=== PATIENT | female | born 2005 | race Caucasian/White ===

== ENCOUNTER 2024-11-29 01:49 | Emergency (ER) | payer OTHER, SELFPAY ==
--- OUTSIDE RECORDS SUMMARY | 2024-11-29 01:54 | XMS_ITS | Data Portability ---
Author Organization GENARO - Silvano [facility], [id number] Address [address] [facility] [place] [address] Assessment No assessment recorded. Plan of Treatment Reminders Order Date Submit Date Provider Last Modified By Organization Details Last Modified Time Details Appointments None recorded. Lab urinalysi s, dipstick 2022 023 ha[address]ilre[id number] [facility] ur[facility]riv [facility], [facility], [address] [place] [address], [address], 3 17:41:06 culture, urine 2022 023 [facility], [address] [place] [address], [place], [address], 3 06:15:58 rapid strep group A, throat 2022 023 [address] [facility] urgmurthadriv e, [facility], Suite [facility], [place], [address], 3 17:06:46 SARS CoV 2 (COVID-19 ) Ag, QL, IA, upper respirato ry specimen 2022 023 jtePercentilreyna [address]_Yadio urgmurthadriv e, [facility], Suite [facility], [place], [address], 3 17:06:44 Referral None recorded. Procedures None recorded. Surgeries None recorded. Imaging None recorded. Medication Orders prednison e 20 mg tablet 2023 024 [facility], [address] [place], [address], 4 12:26:20 Augmentin 875 mg-125 mg tablet 2022 024 [facility], [address] [place], [address], 4 12:19:32 Mucinex D 60 mg-600 mg tablet,ex tended release 2022 024 [facility], [address] [place] [address], [address], 4 12:19:36 fluticaso ne propionat e 50 mcg/actua tion nasal spray,karen pension 2022 024 [facility], [facility] [place], [address], 4 12:19:33 Macrobid 100 mg capsule 2022 023 [facility], [address] [place] [address], [address], 3 08:07:05 amoxicill in 500 mg capsule 2022 023 [facility], [address] [place] [address], [address], 3 00:15:43 Patient TargetsNo targets recorded. Patient Instructions Encounter Date Encounter Id Patient Instructions Last Modified By Organization Details Last Modified Time 01/26/2023 [id number] sore throat: lilliana ayala instructions lisa Not available 01/26/2023 17:06:44 Please consult our office promptly if you develop any of the following symptoms: 1. A fever of at least 101 F or 38.4 C 2. Throat pain that is severe or does not start to improve within 5 to 7 days Call for an ambulance or go to the emergency room if you: 1. Have trouble breathing 2. Cannot control your saliva (drooling) due to difficulty swallowing 3. Have swelling of the neck or tongue 4. Cannot move your neck or have trouble opening your mouth lisa Not available 01/26/2023 16:56:39 02/26/2023 [id number] Urinary Tract Infection (UTI) in Women: Care Instructions haileyagareyna Not available 02/26/2023 17:41:04 follow up with pcp in 5 to 7 days and seek further medical care if you get worse in any way. increase fluids/rest. take all meds as prescribed. if worsening symptoms please follow up. if fever/ high back pain/ blood in urine seek medical care. wipe front to back inc fluids completely void fu if no imp we will call with your results Discussed current treatment plans with patient. Risk and benefits reviewed with patient. Signs and symptoms prompting immediate evaluation discussed. Patient verbalizes understanding and agrees with plan of care. Questions answered and patient voiced understanding Follow up should be as directed, typically in 3-5 days with your primary care provider or [facility] Follow up sooner if there are any problems. Failure to follow up may result in adverse health outcomes. Return to the clinic as needed. You should go to the emergency department immediately for any new/worsening/con cerning symptoms. lisa Not available 02/26/2023 17:41:03 05/02/2023 [id number] Acute Sinusitis: Care Instructions haileyagareyna Not available 05/02/2023 08:19:48 - Use the medications prescribed. - Decongestants if tolerated. - Recommend recheck if fever develops or no improvement in 5-7 days. - Use saline nasal spray or neti-pot flushes once to twice a day to loosen mucus in sinuses. - if no resolution or improvement within 2 weeks recheck at [facility] or PCP -.Use a cool mist humidifier in the room that you sleep to add moisture to the air, which should soothe the airways and help loosen any mucus that may be present. -Call 911 or proceed to nearest Emergency Department if you develop shortness of breath, chest pain, severe headache or other symptoms that concern you. jteagarden Not available 05/02/2023 08:19:46 02/27/2024 [id number] dermatitis: care instructions Not available 02/27/2024 12:26:18 FOLLOW-UP WITH YOUR PRIMARY CARE PROVIDER WITHIN THE WEEK. GO TO THE EMERGENCY DEPARTMENT IF SYMPTOMS WORSEN. TAKE TYLENOL OR IBUPROFEN IF ABLE NEEDED. FLUIDS AND REST. TRY AN [id number] ANTIHISTAMINE DAILY SUCH CLARITIN OR FLONASE. Not available 02/27/2024 12:26:17 Reason for Referral None Reported. Results Created Date Observation Date Name Description Value Unit Range Abnormal Flag Note LastModifiedBy Organization Detail LastModifiedTime 01/27/2001/26/2023 SARS CoV 2 (COVI D-19) Ag, QL, IA, upper respi rator y speci men Unknown Analyte negati ve Not Available [address] urgmurthadriv e [address] [place] [address] [place] [address], [address], 01/26/2023 17:02:58 01/27/20 23 01/26/2023 SARS CoV 2 (COVI D-19) Ag, QL, IA, upper respi rator y speci men Unknown Analyte yes Not Available [address]_ [facility] urgmurthadriv e [address] [place] [address] [place] [address], [address], 01/26/2023 17:02:58 01/27/2001/26/2023 rapid strep group A, throa t Unknown Analyte positi ve Not Available [address] [facility] [place] [address] [facility] [address] [place] [address], [address], 01/26/2023 16:42:32 01/27/2001/26/2023 rapid strep group A, throa t Unknown Analyte yes Not Available [address]_ [facility] urgmurthadriv e [address] [place] [address], [address], 01/26/2023 16:42:32 02/27/2002/28/2023 URINE CULTU RE, ROUTI NE urine culture, routine FINAL REPORT Not Available [facility] ([facility]) [address] [facility], [place], [address], 02/28/2023 06:15:58 02/27/2002/28/2023 URINE CULTU RE, ROUTI NE result 1 COMMEN T Mixed uroge nital talon 25,00 0-50, 000 colon y formi ng units per mL Not Available [facility] ([facility]) [address] [facility], [place], [address], 02/28/2023 06:15:58 02/27/2002/26/2023 urina lysis , dipst ick Unknown Analyte Normal = light yellow Not Available [address] [address] [facility]gmurth[facility] e [facility] [address] [facility], [place], [address], 02/26/2023 17:24:28 02/27/2002/26/2023 urina lysis , dipst ick Unknown Analyte Normal = clear Not Available [address] [place] [address] sb urgmurthadriv e [facility] [address] [facility], [place], [address], 02/26/2023 17:24:28 02/27/2002/26/2023 urina lysis , dipst ick Unknown Analyte Normal = Negati ve Not Available [address] [facility] [employer] [address] [facility], [place], [address], 02/26/2023 17:24:28 02/27/2002/26/2023 urina lysis , dipst ick Unknown Analyte Normal = negati ve Not Available [facility]murthad[facility] [employer] [facility], [place], [address], 02/26/2023 17:24:28 02/27/2002/26/2023 urina lysis , dipst ick Unknown Analyte Normal = Negati ve Not Available [address] [address] [facility] [address], [place], [address], 02/26/2023 17:24:28 02/27/20 23 02/26/2023 urina lysis , dipst ick Unknown Analyte Normal = 1.010, 1.015, 1.020 Not Available [address] [address] [facility], [place], [address], 02/26/2023 17:24:28 02/27/2002/26/2023 urina lysis , dipst ick Unknown Analyte Normal = Negati ve Not Available [address] [facility]g[place] e [facility] [address] [facility], [place], [address], 02/26/2023 17:24:28 02/27/2002/26/2023 urina lysis , dipst ick Unknown Analyte Normal = 6.5, 7.0, 7.5, 8.0 Not Available [address] [facility] e [facility] [address] [facility], [place], [address], 02/26/2023 17:24:28 02/27/20 23 02/26/2023 urina lysis , dipst ick Unknown Analyte Normal = Negati ve Not Available [address] [facility] [place] [address] [facility] [address] [facility], [place], [address], 02/26/2023 17:24:28 02/27/2002/26/2023 urina lysis , dipst ick Unknown Analyte Normal = 0.2, 1.0 Not Available [address] [facility] e [facility] [address] [facility], [place], [address], 02/26/2023 17:24:28 02/27/20 23 02/26/2023 urina lysis , dipst ick Unknown Analyte Normal = Negati ve Not Available [address] [facility] [address] [facility], [place], [address], 02/26/2023 17:24:28 02/27/20 23 02/26/2023 urina lysis , dipst ick Unknown Analyte Normal = Negati ve Not Available [address] [facility] [address] [facility] [address], [place], [address], 02/26/2023 17:24:28 02/27/2002/26/2023 urina lysis , dipst ick Unknown Analyte Hilda Not Available [address]_ [facility] urgmurthadriv e [facility] [address], [place], [address], 02/26/2023 17:24:28 02/27/20 23 02/26/2023 urina lysis , dipst ick Unknown Analyte Slight ly Cloudy Not Available [address] [facility] [address] [facility] [address], [place], [address], 02/26/2023 17:24:28 02/27/20 23 02/26/2023 urina lysis , dipst ick Unknown Analyte Negati ve Not Available [address] [facility] [address] [facility] [address], [place], [address], 02/26/2023 17:24:28 02/27/2002/26/2023 urina lysis , dipst ick Unknown Analyte Negati ve Not Available [address] [facility] [facility] [address], [place], [address], 02/26/2023 17:24:28 02/27/2002/26/2023 urina lysis , dipst ick Unknown Analyte Negati ve Not Available [address] [facility] e [facility] [address] [facility], [place], [address], 02/26/2023 17:24:28 02/27/20 23 02/26/2023 urina lysis , dipst ick Unknown Analyte 1.030 Not Available [address]_ [facility] urgmurthadriv e [address] [place], [place] [address], [place], [address], 02/26/2023 17:24:28 02/27/2002/26/2023 urina lysis , dipst ick Unknown Analyte Modera te Not Available [address] urgmurth[facility]riv e [address] [place], [place] [address] [address] [facility], [place], [address], 02/26/2023 17:24:28 02/27/2002/26/2023 urina lysis , dipst ick Unknown Analyte 5.5 Not Available [address]_ [facility] urgmurthadriv e [facility] [address] [facility], [place], [address], 02/26/2023 17:24:28 02/27/20 23 02/26/2023 urina lysis , dipst ick Unknown Analyte 30 mg/dL Not Available [address] [facility] [address] [place], [place] [address] [address] [facility], [place], [address], 02/26/2023 17:24:28 02/27/2002/26/2023 urina lysis , dipst ick Unknown Analyte 0.2 E.U./d L Not Available [address] [facility] [address] [facility] [address] [facility], [place], [address], 02/26/2023 17:24:28 02/27/20 23 02/26/2023 urina lysis , dipst ick Unknown Analyte Negati ve Not Available [address] [facility] [facility] [address], [place], [address], 02/26/2023 17:24:28 02/27/2002/26/2023 urina lysis , dipst ick Unknown Analyte Small Not Available [address]_ [facility] urgmurthadriv e [address] [facility] [address], [place], [address], 02/26/2023 17:24:28 Result Notes None recorded. Problems No Known Problems Procedures Surgical History Date Name Laterality Status Provider Name and Address Organization Details Recorded Time cholecystectomy completed GURJIT Felder A - [facility] 01/26/2023 16:46:38 Imaging Results None recorded. Procedure Notes None recorded. Medical Equipment None Reported. Allergies No known drug allergies Medications Name Sig Start Date Stop Date Status Note LastModified by Organization Details LastModified Time amoxicillin 500 mg capsule Take 1 capsule twice a day by oral route. 02/26 completed Not Available Not Available Not Available Augmentin 875 mg-125 mg tablet Take 1 tablet every 12 hours by oral route for 10 days. 02/26 completed Not Available Not Available Not Available prednisone 20 mg tablet TAKE 3 TABLETS DAILY X4 DAYS THEN 2 TABLETS DAILY X3 DAYS, THEN 1 TABLET DAILY X3 DAYS active Not Available Not Available No t Available Macrobid 100 mg capsule Take 1 capsule every 12 hours by oral route for 5 days. 05/02 completed Not Available Not Available Not Available fluticasone propionate 50 mcg/actuati on nasal spray,suspe nsion Spray2 spray(s) EVERY DAY by intranasa l route both nostrils 02/26 completed Not Available Not Available Not Available 1.5 (28) 1.5 mg-30 mcg (21)/75 mg (7) tablet active Not Available Not Available Not Available Mucinex D 60 mg-600 mg tablet,exte nded release Take 1 tablet twice a day by oral route as needed. 02/26 completed Not Available Not Available Not Available Vitals Date Recorded Body height Body mass index (BMI) [Percentile] Per age and sex Body mass index (BMI) Body weight Respiratory rate Body temperature Heart rate Oxygen saturation Oxygen saturation in Arterial blood by Pulse oximetry Systolic And Diastolic Provider Name and Address Organization Details Last Updated DateTime 3 167.64 cm 99 % 45.2 kg/m2 736964. 86 g 18 /min 98.6 [degF] 65 /min 99 % 99 % 132/84 mm[Hg] GURJIT IRVING [place] - [facility] 3 16:45:23 Date Recorded Body height Body mass index (BMI) Body mass index (BMI) [Percentile] Per age and sex Body weight Oxygen saturation Oxygen saturation in Arterial blood by Pulse oximetry Heart rate Respiratory rate Body temperature Systolic And Diastolic Provider Name and Address Organization Details Last Updated DateTime 3 170.18 cm 43.9 kg/m2 99 % 972968. 86 g 98 % 98 % 87 /min 18 /min 98.6 [degF] 119/73 mm[Hg] CHAY CABRERA [place] - [facility] 3 17:27:59 Date Recorded Body height Body mass index (BMI) Body mass index (BMI) [Percentile] Per age and sex Body weight Oxygen saturation Oxygen saturation in Arterial blood by Pulse oximetry Heart rate Respiratory rate Body temperature Systolic And Diastolic Provider Name and Address Organization Details Last Updated DateTime 4 172.72 cm 39.5 kg/m2 98.63 % 999221. 02 g 100 % 100 % 67 /min 18 /min 97.8 [degF] 128/85 mm[Hg] Ryanne Velázquez [place] - [facility] 4 12:20:12 Date Recorded Body height Body mass index (BMI) [Percentile] Per age and sex Body mass index (BMI) Body weight Oxygen saturation Oxygen saturation in Arterial blood by Pulse oximetry Heart rate Respiratory rate Body temperature Systolic And Diastolic Provider Name and Address Organization Details Last Updated DateTime 3 170.18 cm 99.65 % 43.9 kg/m2 229721. 86 g 98 % 98 % 68 /min 16 /min 98.9 [degF] 114/78 mm[Hg] Alexandria Draper GENARO Schaef[facility] 08:08:17 Social History Question Answer Notes LastModified by Organizat ion Details LastModified Time Tobacco Smoking Status Never Smoker GURJIT GENARO Chavez [facility] 01/26/2023 16:46:22 Have You Had A Flu Shot This Season? No Information not available 02/26/2023 If No, Would You Like A Flu Shot Today? No Information not available 02/26/2023 Have You Had Direct Contact, Or Contact During Intimacy, With Monkeypox Rash, Scabs, Or Body Fluids From A Person With Monkeypox? No Information not available 01/26/2023 What Is Your Relationship Status? Single Information not available 01/26/2023 Have You Recently Traveled Abroad? No Information not available 01/26/2023 Are You Currently In School? Yes Information not available 01/26/2023 Sex: Unknown Functional Status Question Answer Note LastModified by Organizat ion Details LastModified Time Do you use any illicit or recreational drugs? No Information not available 01/26/2023 Do you or have you ever used any other forms of tobacco or nicotine? No Information not available 01/26/2023 What is your level of alcohol consumption? None Information not available 01/26/2023 Are you currently employed? Yes Information not available 01/26/2023 Mental Status None recorded. Family History Relationship Description Onset Age of this Age Resolved Age Notes LastModified by Organization Details LastModified Time Father No current problems or disability Not available 01/26 16:46:03 Mother No current problems or disability Not available 01/26 16:46:03 Medical History No medical history recorded. Gynecological History Statement/Question Response Date of LMP 02/12/2024 Is there any chance of ? No LMP Approximate Obstetrics History GPAL:G 0 P 0 0 0 0 Past Encounters Encounter ID Performer Location Encounter Start Date Encounter Closed Date Diagnosis/Indication Diagnosis SNOMED-CT Code Diagnosis ICD10 Code Diagnosis Note [id number] GENARO MENENDEZ [address] [facility] [address] [place] [id number] 01/26/2023 16:20:51 01/26/2023 17:10:18 Acute pharyngitis 912835591 J02.9 Streptococ alex sore throat 15945697 J02.0 [id number] Michelle Mercado [place] [address] [place] [address] [place] [id number] 02/26/2023 17:18:55 02/26/2023 17:42:10 Acute urinary tract infection 521714226 N39.0 [id number] [place] [address] [place] [address] [place] [id number] 05/02/2023 08:01:32 05/02/2023 08:20:47 Acute sinusitis 76021741 J01.90 [id number] HILDA ETIENNE [address] [place] [address] [place] [id number] 02/27/2024 11:53:04 02/27/2024 12:26:48 Contact dermatitis 77303160 L25.9 Health Concerns Section Related Observation LastModified by Organization Detai ls LastModified Time None Recorded Concern Status LastModified by Organization Details LastModified Time None Recorded Advance Directives Directive None Recorded Payers Insurance Date Sequence Insurance Name Policy Number Policy Zuñiga Covered Member ID Zuñiga Member ID Guarantor Name 02/27/2024 1 [employer] (POS II) [id number] Yanely Reaves [id number] Dhara Reaves Notes Date Note Type Note Provider Name and Address Organization Details Recorded Time 01/26/2023 text/html pt with st and f ever for 2 days no other sx no others sick no cough no congestion no pain on inspiration. GENARO MENENDEZ [address] [place], [address], [place] - [facility] 01/26/2023 17:07:48 02/26/2023 text/html Urinary Complain t FemaleReported bypatient.UTI Symptoms:no blood in the urine; no vaginal discharge;urgency;ur inary frequency Severity:mild Duration:started ; 2 days Modifying Factors:nothing gives relief GENARO MENENDEZ [address] [place], [address], [facility] 02/26/2023 17:42:04 05/02/2023 text/html Sinus Complaints UCReported bypatient.Location:s inus pain;facial pain;pain in the cheek;sinus pressure; left side Associated Symptoms:nasal discharge from both nostrils;headache cheek;Post nasal drip;nasal passage blockage bilaterally;ear fullness Onset/Timing:initial ly started 1weeks ago Quality:worsening;pu rulent Severity:moderate Context:recent upper respiratory infection Risk Factors:no current smoking or tobacco use Alleviating factors:nothing gives relief Aggravating factors:worse with excess fatigue Prior Treatmentoral decongestant GENARO MENENDEZ [address] [place], [address], [facility] 05/02/2023 08:20:58 02/27/2024 text/html Skin Redness UCReported bypatient.Notes:x4-5 days of rash on both arms and legs that itches, only thing she can recall is getting gel swazi on her left thigh before this occured HILDA BRYNIM LOWELL [address] [place], [address], [place] [facility] 02/27/2024 13:27:46 OBGyn Episode No OBEpisode recorded.
[2024-11-29 01:57] VITALS: BP 117/80; PULSE 88; RESP 18; TEMP 36.9; O2SAT 98; BMI 33.4
--- NOTE | 2024-11-29 02:38 | HMH.EDGENADL ---
Discharge Plan Disposition Patient Disposition: Home, Self-Care Prescriptions Prescriptions: No Action norethindrone-e.estradiol-iron [ ()] 1.5 mg-30 mcg (21)/75 mg (7) tablet 1 tab PO DAILY Qty: 84 4RF Referrals Follow up/Referrals: Kalie Hall APRN [Primary Care Provider, Family Practice] - See instructions Activity Restrictions/Add. Instructions Additional Instructions/Restrictions: Please follow-up with your OBGYN. Please return to the emergency department if you develop any new or worsening symptoms or become concerned for your health. Clinical Impressions Clinical Impression: Bleeding in early Instructions Patient Instructions: DI for Acute Abdominal Pain Print Language Print Language: French Discharge ED Provider: Sotero Hoang Adult HPI General Chief complaint: Abdominal Pain Stated complaint: 13 wks antepartum, vaginal bleeding Time Seen by Provider: 11/29/24 02:00 Mode of Arrival: Ambulatory Source of Information: Patient Description of Symptoms (Recalled from ER Triage Doc. by RN): pt presents to the ED d/t complaints ofbeing 13 weeks . no previous pregnancies. pt states profusely bleeding through her pants. pt states told she has a 7cm ovarian cyst. morales in right side is present. History of Present Illness HPI narrative: 19-year-old female, 13 weeks with first , presents for vaginal bleeding. She reports that it started shortly prior to arrival. She bled through her panties. She reports some generalized lower abdominal pain but denies any specific focal pain. Pain is improved. She reports that she does have a right sided 7 cm ovarian cyst that was noted on ultrasound recently. She denies any recent sexual intercourse or penetration of any kind. Denies any vaginal discharge, odor or concern for infection. Related Data Previous Rx's ?Medication ?Instructions ?Recorded norethindrone 1.5 mg-ethinyl 1 tab PO DAILY #84 tabs 01/17/24 estradiol 30 mcg(21)/iron 75 mg(7) tablet ( ()) Allergies Allergy/AdvReac Type Severity Reaction Status Date / Time No Known Allergies Allergy Verified 12/27/23 13:42 [facility] Disclaimer: The information contained in this section may have been updated after the patient was seen, as this information can be updated by other users. Medical History Viral encephalitis Surgical History History of cholecystectomy Family History Grandfather Cancer Social History Smoking Status: Never smoker alcohol intake: never substance use type: denies use current occupational status: student Travel in the last 8 weeks?: Inside the [employer] States household members: family housing: house marital status: single Have you lived/traveled outside US in past 30 days?: No Contact w/someone who lives/traveled outside US past 30 days?: No Exposure to someone with infectious disease in past 14 days?: No Do you have a fever (greater than 100.4 F or 38 C)?: No Have you tested positive for COVID-19?: No Exposed to someone with COVID-19 in past 14 days?: No Do you have a sore throat?: No Do you have a cough?: No Do you have any weakness?: No Do you have any diarrhea?: No Are you experiencing any unusual bleeding?: Yes Do you have any muscle aches/pain?: No Do you have any abdominal pain?: No Are you experiencing loss of taste or smell?: No Other Medical History Have you received the Pneumonia Vaccine: No ROS Obtained: Yes All systems reviewed & no additional complaints except as documented Physical Exam General General appearance: alert and in no apparent distress Head Head exam: atraumatic and normocephalic Eye Eye exam: Present normal appearance, PERRL and EOMI ENT ENT exam: Present normal oropharynx and normal external ear exam Neck Neck exam: Present normal inspection and full ROM Chest Chest inspection: Present normal inspection and symmetric chest wall rise; Absent tenderness Respiratory Respiratory exam: Present normal lung sounds bilaterally; Absent respiratory distress Cardiovascular Cardiovascular exam: Present regular rate and normal rhythm Abdominal Exam Abdominal exam: Present soft; Absent distention, tenderness or guarding Extremities Exam Extremities exam: Present normal inspection; Absent edema or joint swelling Back Exam Back exam: Present normal inspection; Absent tenderness Neurological Exam Neurological exam: Present alert and oriented X3; Absent motor sensory deficit Psychiatric Psychiatric exam: Present normal affect and normal mood Skin Skin exam: Present warm, dry and normal color Lymphatic Lymphatic Findings: no adenopathy Medical Decision Making Medical Records Medical records reviewed: Yes I reviewed the patient's medical records. Screening: Per USPSTF and CDC recommendations, given the prevalence of disease in our region, it is our hospital?s policy to screen for HIV and viral Hepatitis for all patients aged 18 and over and those with ongoing risk factors. Peter Inquiry Pt receiving controlled substance: No Peter was queried for this patient: No Vital Signs: 11/29/24 01:57 11/29/24 02:55 11/29/24 02:56 Temperature 98.4 F 98.0 F 98.0 F Temperature Source Oral Oral Oral Pulse Rate 88 88 Pulse Rate [Right Radial] 88 Respiratory Rate 18 18 18 Blood Pressure 120/78 120/78 Blood Pressure [Left Arm] 117/80 Blood Pressure Mean [Left Arm] 92 Blood Pressure Position Sitting Sitting Blood Pressure Position [Left Arm] Supine 02 Sat by Pulse Oximetry 98 99 Oxygen Delivery Method Room Air Room Air Room Air Lab Data Lab results reviewed: Yes I reviewed the patient's lab results. Orders (Tests/Meds): ORDERS Category Date Time Status POCUS Point of Care (ER Only) Stat Exams 11/29/24 02:37 Completed Medical Decision Narrative: 19-year-old female at 13 weeks with first presents for an episode of vaginal bleeding. History was obtained via interactive discussion with patient, family. On arrival, patient is [afebrile, hemodynamically stable, satting appropriately, alert, oriented x4, GCS 15], moving all extremities spontaneously. Full physical exam performed and significant for no significant physical exam abnormalities Differential includes but is not limited to subchorionic hemorrhage, miscarriage, vaginal laceration, ectopic coagulopathy. Bedside ultrasound was performed which showed her intrauterine , active and moving around with appropriate heart rate. No obvious fluid collection in the lower uterine segment. Considered doing a vaginal exam, but after discussion with patient it was deferred. Recommended she call and follow-up with her MASTIC MAN or return if symptoms worsen. Procedures Risk/Benefits of Procedure(s) Were Explained: Yes Limited Ultrasound Indication:: Limited OB ultrasound Indication: Vaginal bleeding early Identified structures: Uterus, pouch of Samuel Findings: Uterus: Definitive IUP FHR: Grossly normal Cul de sac: Free fluid absent Impression: -IUP: Her intrauterine , active and moving - heart rate: Grossly normal -Ectopic : Not apparent -Free fluid: Absent Images were saved to permanent archive The study was technically adequate CPT Transabdominal: 59060-25 This study was performed by me, and I personally interpreted all images/videos. Critical Care Critical Care Time Critical Care Time: No
[2024-11-29 02:55] VITALS: BP 120/78; PULSE 88; RESP 18; TEMP 36.7; O2SAT 99
[2024-11-29 02:56] VITALS: BP 120/78; PULSE 88; RESP 18; TEMP 36.7; O2SAT 98
== END 2024-11-29 02:57 | disposition home or self-care (01) ==
PROVIDERS: Emergency Provider Emergency Medicine; PCP Nurse Practitioner Family
DX: O20.9 Hemorrhage in early pregnancy, unspecified (principal); R10.84 Generalized abdominal pain; Z3A.13 13 weeks gestation of pregnancy
CPT/HCPCS: 99284

== ENCOUNTER 2024-12-01 12:54 | Outpatient (CLI) | payer OTHER, SELFPAY ==
--- OUTSIDE RECORDS SUMMARY | 2024-12-01 13:01 | XMS_ITS | Data Portability ---
Author Organization [facility] - [facility], [id number]aur[address] Address [address] [facility] [place] [address] Assessment No assessment recorded. Plan of Treatment Reminders Order Date Submit Date Provider Last Modified By Organization Details Last Modified Time Details Appointments None recorded. Lab urinalysi s, dipstick 2022 023 [employer]iley[employer]tech Holdingsreyna [address] [facility], [facility] [address], [address] [place] [address], [address], 3 17:41:06 culture, urine 2022 023 [place] [facility], [address] [place] [address], [place], [address], 3 06:15:58 rapid strep group A, throat 2022 023 [employer]te[employer] Holdingsreyna [address] [facility]mur[facility], [facility], [address] [facility], [place], [address], 3 17:06:46 SARS CoV 2 (COVID-19 ) Ag, QL, IA, upper respirato ry specimen 2022 023 [employer]te[employer]reyna [address] [facility], [facility] [address], [address] [facility], [place], [address], 3 17:06:44 Referral None recorded. Procedures None recorded. Surgeries None recorded. Imaging None recorded. Medication Orders prednison e 20 mg tablet 2023 024 [facility], [address] [place], [address], 4 12:26:20 Augmentin 875 mg-125 mg tablet 2022 024 [facility], [address] [place], [address], 4 12:19:32 Mucinex D 60 mg-600 mg tablet,ex tended release 2022 024 [facility], [address] [place] [address], [address], 4 12:19:36 fluticaso ne propionat e 50 mcg/actua tion nasal spray,karen pension 2022 024 [facility], [facility] [place], [address], 4 12:19:33 Macrobid 100 mg capsule 2022 023 [facility], [address] [place] [address], [address], 3 08:07:05 amoxicill in 500 mg capsule 2022 023 [facility], [address] [place] [address], [address], 3 00:15:43 Patient TargetsNo targets recorded. Patient Instructions Encounter Date Encounter Id Patient Instructions Last Modified By Organization Details Last Modified Time 01/26/2023 [id number] sore throat: lilliana ayala instructions lisa Not [...] mouth lisa Not available 01/26/2023 16:56:39 02/26/2023 [id number] Urinary Tract Infection (UTI) in Women: Care [...] symptoms. lisa Not available 02/26/2023 17:41:03 05/02/2023 [id number] Acute Sinusitis: Care Instructions haileyagareyna Not available [...] you. jteagarden Not available 05/02/2023 08:19:46 02/27/2024 [id number] dermatitis: care instructions Not available 02/27/2024 12:26:18 FOLLOW-UP WITH YOUR PRIMARY CARE PROVIDER WITHIN THE WEEK. GO TO THE EMERGENCY DEPARTMENT IF SYMPTOMS WORSEN. TAKE TYLENOL OR IBUPROFEN IF ABLE NEEDED. FLUIDS AND REST. TRY AN [id number] ANTIHISTAMINE DAILY SUCH CLARITIN OR FLONASE. Not available 02/27/2024 12:26:17 Reason for Referral None Reported. Results Created Date Observation Date Name Description Value Unit Range Abnormal Flag Note LastModifiedBy Organization Detail LastModifiedTime 01/27/2001/26/2023 SARS CoV 2 (COVI D-19) Ag, QL, IA, upper respi rator y speci men Unknown Analyte negati ve Not Available [address] [address] [place] [address] [place] [address], [address], 01/26/2023 17:02:58 01/27/20 23 01/26/2023 SARS CoV 2 (COVI D-19) Ag, QL, IA, upper respi rator y speci men Unknown Analyte yes Not Available [address]_ [facility] ur[address] e [address] [place] [address] [place] [address], [address], 01/26/2023 17:02:58 01/27/2001/26/2023 rapid strep group A, throa t Unknown Analyte positi ve Not Available [address] [facility] [address] [facility] [address] [place] [address], [address], 01/26/2023 16:42:32 01/27/2001/26/2023 rapid strep group A, throa t Unknown Analyte yes Not Available [address]_ [facility] e [address] [place] [address], [address], 01/26/2023 16:42:32 02/27/2002/28/2023 URINE CULTU RE, ROUTI NE urine culture, routine FINAL REPORT Not Available [facility] ([facility]) [address] [facility], [place], [address], 02/28/2023 06:15:58 02/27/2002/28/2023 URINE CULTU RE, ROUTI NE result 1 COMMEN T Mixed uroge nital talon 25,00 0-50, 000 colon y formi ng units per mL Not Available [facility] ([facility]) [address] [facility], [place], [address], 02/28/2023 06:15:58 02/27/2002/26/2023 urina lysis , dipst ick Unknown Analyte Normal = light yellow Not Available [address] [facility] [address] [facility], [place], [address], 02/26/2023 17:24:28 02/27/2002/26/2023 urina lysis , dipst ick Unknown Analyte Normal = clear Not Available [address] [place] [address] sb ur[facility]murth[facility] e [facility] [address] [facility], [place], [address], 02/26/2023 17:24:28 02/27/2002/26/2023 urina lysis , dipst ick Unknown Analyte Normal = Negati ve Not Available [address] [facility] [address] [facility], [place], [address], 02/26/2023 17:24:28 02/27/2002/26/2023 urina lysis , dipst ick Unknown Analyte Normal = negati ve Not Available [facility] [address] [facility], [place], [address], 02/26/2023 17:24:28 02/27/2002/26/2023 urina lysis , dipst ick Unknown Analyte Normal = Negati ve Not Available [address] [facility] [address] [address], [place], [address], 02/26/2023 17:24:28 02/27/20 23 02/26/2023 urina lysis , dipst ick Unknown Analyte Normal = 1.010, 1.015, 1.020 Not Available [address] [facility] [address], [place], [address], 02/26/2023 17:24:28 02/27/2002/26/2023 urina lysis , dipst ick Unknown Analyte Normal = Negati ve Not Available [address] [facility] [address] [facility], [place], [address], 02/26/2023 17:24:28 02/27/2002/26/2023 urina lysis , dipst ick Unknown Analyte Normal = 6.5, 7.0, 7.5, 8.0 Not Available [address] [facility] [address] [facility], [place], [address], 02/26/2023 17:24:28 02/27/20 23 02/26/2023 urina lysis , dipst ick Unknown Analyte Normal = Negati ve Not Available [address] [facility] [address] [facility], [place], [address], 02/26/2023 17:24:28 02/27/2002/26/2023 urina lysis , dipst ick Unknown Analyte Normal = 0.2, 1.0 Not Available [address] [facility] [address] [facility], [place], [address], 02/26/2023 17:24:28 02/27/20 23 02/26/2023 urina lysis , dipst ick Unknown Analyte Normal = Negati ve Not Available [address] [facility] [address], [place], [address], 02/26/2023 17:24:28 02/27/20 23 02/26/2023 urina lysis , dipst ick Unknown Analyte Normal = Negati ve Not Available [address] [facility], [place], [address], 02/26/2023 17:24:28 02/27/2002/26/2023 urina lysis , dipst ick Unknown Analyte Hilda Not Available [address]_ [facility] [address], [place], [address], 02/26/2023 17:24:28 02/27/20 23 02/26/2023 urina lysis , dipst ick Unknown Analyte Slight ly Cloudy Not Available [address] [facility], [place], [address], 02/26/2023 17:24:28 02/27/20 23 02/26/2023 urina lysis , dipst ick Unknown Analyte Negati ve Not Available [address] [facility] [address], [place], [address], 02/26/2023 17:24:28 02/27/2002/26/2023 urina lysis , dipst ick Unknown Analyte Negati ve Not Available [address] [facility] [address], [place], [address], 02/26/2023 17:24:28 02/27/2002/26/2023 urina lysis , dipst ick Unknown Analyte Negati ve Not Available [address] [facility] [address] [facility], [place], [address], 02/26/2023 17:24:28 02/27/20 23 02/26/2023 urina lysis , dipst ick Unknown Analyte 1.030 Not Available [address]_ [facility] [address] [place], [place] [address] [address], [place], [address], 02/26/2023 17:24:28 02/27/2002/26/2023 urina lysis , dipst ick Unknown Analyte Modera te Not Available [address] [address] [place], [place] [address] [address] [facility], [place], [address], 02/26/2023 17:24:28 02/27/2002/26/2023 urina lysis , dipst ick Unknown Analyte 5.5 Not Available [address]_ [facility] [address] [facility], [place], [address], 02/26/2023 17:24:28 02/27/20 23 02/26/2023 urina lysis , dipst ick Unknown Analyte 30 mg/dL Not Available [address] [facility] [address] [place], [place] [address] [address] [facility], [place], [address], 02/26/2023 17:24:28 02/27/2002/26/2023 urina lysis , dipst ick Unknown Analyte 0.2 E.U./d L Not Available [address] [facility] [address] [facility] [address] [facility], [place], [address], 02/26/2023 17:24:28 02/27/20 23 02/26/2023 urina lysis , dipst ick Unknown Analyte Negati ve Not Available [address] [facility] [facility] [address], [place], [address], 02/26/2023 17:24:28 02/27/2002/26/2023 urina lysis , dipst ick Unknown Analyte Small Not Available [address]_ [facility] [address] [facility] [address], [place], [address], 02/26/2023 17:24:28 Result Notes None recorded. Problems [...] 3 167.64 cm 99 % 45.2 kg/m2 955282. 86 g 18 /min 98.6 [degF] 65 /min 99 % 99 % 132/84 mm[Hg] GURJIT IRVING [place] - [employer] [facility] 3 16:45:23 Date Recorded Body height Body mass index (BMI) Body mass index (BMI) [Percentile] Per age and sex Body weight Oxygen saturation Oxygen saturation in Arterial blood by Pulse oximetry Heart rate Respiratory rate Body temperature Systolic And Diastolic Provider Name and Address Organization Details Last Updated DateTime 3 170.18 cm 43.9 kg/m2 99 % 323544. 86 g 98 % 98 % 87 /min 18 /min 98.6 [degF] 119/73 mm[Hg] CHAY CABRERA [place] - [facility] 3 17:27:59 Date Recorded Body height Body mass index (BMI) Body mass index (BMI) [Percentile] Per age and sex Body weight Oxygen saturation Oxygen saturation in Arterial blood by Pulse oximetry Heart rate Respiratory rate Body temperature Systolic And Diastolic Provider Name and Address Organization Details Last Updated DateTime 4 172.72 cm 39.5 kg/m2 98.63 % 091354. 02 g 100 % 100 % 67 /min 18 /min 97.8 [degF] 128/85 mm[Hg] Ryanne Velázquez [place] - [employer] [facility] 4 12:20:12 Date Recorded Body height Body mass index (BMI) [Percentile] Per age and sex Body mass index (BMI) Body weight Oxygen saturation Oxygen saturation in Arterial blood by Pulse oximetry Heart rate Respiratory rate Body temperature Systolic And Diastolic Provider Name and Address Organization Details Last Updated DateTime 3 170.18 cm 99.65 % 43.9 kg/m2 007753. 86 g 98 % 98 % 68 [...] SNOMED-CT Code Diagnosis ICD10 Code Diagnosis Note [id number] GENARO MENENDEZ [address] [facility] [address] GENARO [place]ac[place] [address] 01/26/2023 16:20:51 01/26/2023 17:10:18 Acute pharyngitis 889700454 J02.9 Streptococ alex sore throat 24327734 J02.0 [id number] Michelle Mercado MD [address] [place] [address] [place]ARO [place] [address] 02/26/2023 17:18:55 02/26/2023 17:42:10 Acute urinary tract infection 805994209 N39.0 [id number] Michelle Mercado MD [address] [place] [address] [place]AR[place] [address] 05/02/2023 08:01:32 05/02/2023 08:20:47 Acute sinusitis 83429963 J01.90 [id number] HILDA ETIENNE [address] [place] [address] GENAR[place] [address] 02/27/2024 11:53:04 02/27/2024 12:26:48 Contact dermatitis 12154226 L25.9 Health Concerns Section Related Observation LastModified by Organization Detai ls LastModified Time None Recorded Concern Status LastModified by Organization Details LastModified Time None Recorded Advance Directives Directive None Recorded Payers Insurance Date Sequence Insurance Name Policy Number Policy Zuñiga Covered Member ID Zuñiga Member ID Guarantor Name 02/27/2024 1 [employer] (POS II) [id number] Yanely Reaves [id number] Dhara Reaves Notes Date Note Type Note Provider Name and Address Organization Details Recorded Time 01/26/2023 text/html pt with st and f ever for 2 days no other sx no others sick no cough no congestion no pain on inspiration. EGNARO MENENDEZ [address] [place], [address], [place] - [facility] 01/26/2023 17:07:48 02/26/2023 text/html Urinary Complain t FemaleReported bypatient.UTI Symptoms:no blood in the urine; no vaginal discharge;urgency;ur inary frequency Severity:mild Duration:started ; 2 days Modifying Factors:nothing gives relief GENARO MENENDEZ [address] [place], [address], [employer] [facility] 02/26/2023 17:42:04 05/02/2023 text/html Sinus Complaints [...] decongestant GENARO MENENDEZ [address] [place], [address], [facility] 05/02/2023 08:20:58 02/27/2024 text/html Skin Redness UCReported bypatient.Notes:x4-5 days of rash on both arms and legs that itches, only thing she can recall is getting gel indian on her left thigh before this occured HILDA BRYNIM LOWELL [address] [place], [address], [place] [facility] 02/27/2024 13:27:46 OBGyn Episode No OBEpisode recorded.
[2024-12-01 13:58] LABS: Hematocrit 35.9 % (37.0-47.0); Hemoglobin 12.1 g/dL (12.2-16.2); Immature Granulocytes % 0.3 %; Mean Corpuscular HGB Conc 33.7 g/dL (31.8-35.4); Mean Corpuscular Hemoglobin 28.5 pg (27.0-31.2); Mean Corpuscular Volume 84.5 fl (81-99); Nucleated Red Blood Cells % 0 %; Platelet Count 221 K/mm3 (142-424); Red Blood Count 4.25 M/mm3 (4.20-5.40); Red Cell Distribution Width-SD 38.4 fL; White Blood Count 9.8 K/mm3 (4.5-13.0)
== END 2024-12-01 23:59 | disposition home or self-care (01) ==
PROVIDERS: PCP Nurse Practitioner Family; Visit Provider Student in an Organized Health Care Education/Training Program
DX: O46.90 Antepartum hemorrhage, unspecified, unspecified trimester (principal); O26.851 Spotting complicating pregnancy, first trimester
CPT/HCPCS: 36415; 84702; 85025; 86850